=== PATIENT | female | born 1980 | race Caucasian/White ===

== ENCOUNTER → 2016-05-05 | Outpatient (CLI) | payer BC ==
--- NOTE | 2016-05-05 10:07 | NM ---
EXAMINATION TYPE: NM hepatobiliary w EF DATE OF EXAM: 05/05/2016 8:38 AM COMPARISON: NONE HISTORY: Epigastric pain per order. Diminished appetite for 2 months with nausea per patient. TECHNIQUE: After the intravenous administration of 5.5 mCi Tc 99m Mebrofenin hepatobiliary scintigrap hy is performed. Immediate images post injection. FINDINGS: There is satisfactory initial accumulation of tracer by the liver. The gallbladder is visualized wit hin 15 minutes. The small bowel activity is noted within 30 minutes. At one hour 8 ounces of oral e nsure plus is given to mimic CCK and gallbladder ejection fraction is calculated at 78 %, in the norm al range. Therefore there is no scintigraphic evidence of cystic or common bile duct obstruction to suggest acute cholecystitis or gallbladder dyskinesia. IMPRESSION: Exam is within normal limits.
== END | disposition home or self-care (01) ==
LOC: RADNMMAIN 06:27
PROVIDERS: ATTEND Family Medicine
DX: K82.8 Other specified diseases of gallbladder (principal); R10.13 Epigastric pain
CPT/HCPCS: 78226; A9537

== ENCOUNTER 2016-10-29 09:47 | Day surgery (SDC) | payer BC ==
[2016-10-26 12:41] VITALS: BMI 25.0
[~2016-10-29 09:47] MED LIST: LACTATED RINGERS 1,000 ML IV SCH; LIDOCAINE 1% 20 ML VIAL (10MG/ML) FOR IV START INTRADERMA PRN
[2016-10-29 11:32] VITALS: TEMP 98.5
--- NOTE | 2016-10-29 12:09 | P.PCN ---
Date of Procedure: 10/29/16 Preoperative Diagnosis: Postoperative Diagnosis: Procedure(s) Performed: BRIEF HISTORY: Patient is a 36-year-old, pleasant, white female, scheduled for an upper endoscopy as a part of evaluation of epigastric pain for the last 2 years duration. She has chronic heartburn and has been on Prilosec 20 mg daily and doing well. She has these episodes of epigastric pain once or twice a week the last couple of hours and then subsided. Has some nausea but no emesis.. PROCEDURE PERFORMED: Esophagogastroduodenoscopy with biopsy. PREOPERATIVE DIAGNOSIS: GERD/epigastric pain. IV sedation per anesthesia. PROCEDURE: After informed consent was obtained, the patient was brought into the endoscopy unit. IV sedation was administered by Anesthesia under continuous monitoring. Initially the Olympus GIF-140 video endoscope was inserted into the mouth. Esophagus intubated without any difficulty. It was gradually advanced into the stomach and duodenum and carefully examined. The bulb and the second part of the duodenum appeared normal. The scope at this time was withdrawn to the stomach, adequately insufflated with air, and upon careful examination, mucosa of the antrum, body, cardia and the fundus appeared normal. The scope was then withdrawn into the esophagus. The GE junction was located at 39 cm from the incisors. The esophagus appeared normal. There were no erosions or ulcerations seen and the patient tolerated the procedure well. IMPRESSION: 1. Mild antral gastritis. 2. No evidence of esophagitis or peptic ulcer disease. RECOMMENDATIONS: The findings of this examination were discussed with the patient as well as a family. She was advised to follow with the biopsy results. She will continue with Prilosec 20 mg daily and follow antireflux measures. Implants: Indications for Procedure: Operative Findings: Description of Procedure:
[2016-10-29 12:24] VITALS: RESP 16
[2016-10-29 12:44] VITALS: BP 120/40; PULSE 66
== END 2016-10-29 12:54 | disposition home or self-care (01) ==
LOC: ORWHC2ENDO 09:47
PROVIDERS: ATTEND Internal Medicine Gastroenterology
DX: K29.50 Unspecified chronic gastritis without bleeding (principal); Z79.899 Other long term (current) drug therapy
CPT/HCPCS: 43239; 88305; 88342

== ENCOUNTER 2017-07-21 18:39 | Emergency (ER) | payer BC ==
[2017-07-21] MEDS ORDERED: RX INFO: IV CONTRAST WAS GIVEN 1 EACH MISC MISCELLANE PRN (19:57)
[2017-07-21] MEDS ORDERED: KETOROLAC 30 MG/ML 1 ML VIAL IVP STA (19:57)
[2017-07-21] MEDS ORDERED: SODIUM CHLORIDE 0.9% 500 ML IV STA (19:57)
--- NOTE | 2017-07-21 20:02 | ED ---
Female Urogenital HPI - General Chief complaint: Urogenital Stated complaint: RT SIDE GROIN PAIN X 2 WEEKS Time Seen by Provider: 07/21/17 19:39 Source: patient Mode of arrival: ambulatory Limitations: no limitations - History of Present Illness Initial comments: 37-year-old female patient presents to the emergency department today for evaluation of right groin pain. Patient states that she has had this pain on and off since February however over the last 2 weeks the pain has become more constant and severe. Patient states that she had seen her hydramatic mechanic initially for this pain, had an ultrasound which showed a 5 cm ovarian cyst on the right side. He states that they did do a laparoscopic surgery on 05/16/17 and found multiple adhesions, states that they cleared the adhesions the left the cyst in place. Once the pain worsened patient followed up with her hydramatic mechanic, they repeated the ultrasound yesterday and showed that the cyst is now resolved and found no cause for her pain. Patient did call her primary care physician but cannot get in for a couple of weeks. They recommended she come in here to be evaluated. Patient describes the pain as a sharp stabbing pain. States it is constant. States that it worsens with movement. She denies any radiation of the pain to her back. She denies any nausea, vomiting, fever, chills, constipation, diarrhea, hematochezia, melena, vaginal bleeding, or vaginal discharge. Patient does have a history of hysterectomy and C- section. Patient denies any recent rash, shortness breath, chest pain, numbness , tingling, dizziness, weakness, hematuria, dysuria, urinary urgency, urinary frequency, headache, visual changes, or any other complaints. - Related Data Home Medications Medication Instructions Recorded Confirmed clonazePAM [KlonoPIN] 1 mg PO HS PRN 07/21/17 07/21/17 Allergies Allergy/AdvReac Type Severity Reaction Status Date / Time No Known Allergies Allergy Verified 07/21/17 19:55 Review of Systems ROS Statement: Those systems with pertinent positive or pertinent negative responses have been documented in the HPI. ROS Other: All systems not noted in ROS Statement are negative. Past Medical History Past Medical History: No Reported History History of Any Multi-Drug Resistant Organisms: None Reported Past Surgical History: Section, Hysterectomy Past Anesthesia/Blood Transfusion Reactions: No Reported Reaction Past Psychological History: No Psychological Hx Reported Smoking Status: Never smoker Past Alcohol Use History: Rare Past Drug Use History: None Reported - Past Family History Mother Family Medical History: No Reported History General Exam Limitations: no limitations General appearance: alert, in no apparent distress, other (This is a well- developed, well-nourished adult female patient in no acute distress. Vital signs upon presentation are temperature 98.2F, pulse 80, respirations 20, blood pressure 131/78, pulse ox 98% on room air.) Eye exam: Present: normal appearance, PERRL, EOMI. Absent: scleral icterus, conjunctival injection, periorbital swelling ENT exam: Present: normal exam, normal oropharynx, mucous membranes moist Respiratory exam: Present: normal lung sounds bilaterally. Absent: respiratory distress, wheezes, rales, rhonchi, stridor Cardiovascular Exam: Present: regular rate, normal rhythm, normal heart sounds. Absent: systolic murmur, diastolic murmur, rubs, gallop, clicks GI/Abdominal exam: Present: soft, tenderness (Right lower quadrant tenderness), normal bowel sounds. Absent: distended, guarding, rebound, rigid Back exam: Present: normal inspection. Absent: CVA tenderness (R), CVA tenderness (L) Neurological exam: Present: alert, oriented X3, CN II-XII intact Psychiatric exam: Present: normal affect, normal mood Skin exam: Present: warm, dry, intact, normal color. Absent: rash Course Vital Signs 07/21/17 07/21/17 18:44 21:18 Temperature 98.2 F Pulse Rate 80 79 Respiratory 20 17 Rate Blood Pressure 131/78 110/69 O2 Sat by Pulse 98 100 Oximetry Medical Decision Making - Medical Decision Making 37-year-old female patient presented to the emergency department today for evaluation of right lower quadrant abdominal pain. Physical examination did reveal some right lower abdominal tenderness. Labs reviewed and were unremarkable. Urine was clear for any infection. Patient did have ultrasound by her physician yesterday which was clear for any ovarian cysts. CT of the abdomen and pelvis with contrast was obtained today and did show a large left- sided ovarian cyst but this is not a cover her symptoms. Appendix looked normal. Patient is afebrile, vital signs are stable. Did discuss findings with the patient. Patient does have a history of abdominal adhesions, I informed her that this could be part a cause for her pain. She is instructed to follow-up with the general surgeon for further evaluation. Return parameters discussed in detail. She verbalizes understanding and agrees with this plan. - Lab Data Result diagrams: 07/21/17 20:15 07/21/17 20:15 Lab Results 07/21/17 07/21/17 07/21/17 Range/Units 20:09 20:15 20:15 WBC 6.7 (3.8-10.6) k/uL RBC 4.55 (3.80-5.40) m/uL Hgb 13.3 (11.4-16.0) gm/dL Hct 39.2 (34.0-46.0) % MCV 86.2 (80.0-100.0) fL MCH 29.1 (25.0-35.0) pg MCHC 33.8 (31.0-37.0) g/dL RDW 12.5 (11.5-15.5) % Plt Count 298 (150-450) k/uL Neutrophils % 58 % Lymphocytes % 33 % Monocytes % 5 % Eosinophils % 2 % Basophils % 0 % Neutrophils # 3.9 (1.3-7.7) k/uL Lymphocytes # 2.2 (1.0-4.8) k/uL Monocytes # 0.3 (0-1.0) k/uL Eosinophils # 0.2 (0-0.7) k/uL Basophils # 0.0 (0-0.2) k/uL Sodium 143 (137-145) mmol/L Potassium 3.7 (3.5-5.1) mmol/L Chloride 109 H (98-107) mmol/L Carbon Dioxide 22 (22-30) mmol/L Anion Gap 12 mmol/L BUN 19 H (7-17) mg/dL Creatinine 0.70 (0.52-1.04) mg/dL Est GFR (CKD-EPI)AfAm >90 (>60 ml/min/1.73 sqM) Est GFR (CKD-EPI)NonAf >90 (>60 ml/min/1.73 sqM) Glucose 88 (74-99) mg/dL Plasma Lactic Acid Michael (0.7-2.0) mmol/L Calcium 9.1 (8.4-10.2) mg/dL Total Bilirubin 0.4 (0.2-1.3) mg/dL AST 20 (14-36) U/L ALT 25 (9-52) U/L Alkaline Phosphatase 39 (38-126) U/L Total Protein 6.3 (6.3-8.2) g/dL Albumin 3.6 (3.5-5.0) g/dL Amylase 51 (30-110) U/L Lipase 71 (23-300) U/L Urine Color Yellow Urine Appearance Clear (Clear) Urine pH 5.5 (5.0-8.0) Ur Specific [place] 1.025 (1.001-1.035) Urine Protein Negative (Negative) Urine Glucose (UA) Negative (Negative) Urine Ketones 1+ H (Negative) Urine Blood Negative (Negative) Urine Nitrite Negative (Negative) Urine Bilirubin Negative (Negative) Urine Urobilinogen <2.0 (<2.0) mg/dL Ur Leukocyte Esterase Negative (Negative) 07/21/17 Range/Units 20:15 WBC (3.8-10.6) k/uL RBC (3.80-5.40) m/uL Hgb (11.4-16.0) gm/dL Hct (34.0-46.0) % MCV (80.0-100.0) fL MCH (25.0-35.0) pg MCHC (31.0-37.0) g/dL RDW (11.5-15.5) % Plt Count (150-450) k/uL Neutrophils % % Lymphocytes % % Monocytes % % Eosinophils % % Basophils % % Neutrophils # (1.3-7.7) k/uL Lymphocytes # (1.0-4.8) k/uL Monocytes # (0-1.0) k/uL Eosinophils # (0-0.7) k/uL Basophils # (0-0.2) k/uL Sodium (137-145) mmol/L Potassium (3.5-5.1) mmol/L Chloride (98-107) mmol/L Carbon Dioxide (22-30) mmol/L Anion Gap mmol/L BUN (7-17) mg/dL Creatinine (0.52-1.04) mg/dL Est GFR (CKD-EPI)AfAm (>60 ml/min/1.73 sqM) Est GFR (CKD-EPI)NonAf (>60 ml/min/1.73 sqM) Glucose (74-99) mg/dL Plasma Lactic Acid Michael 0.7 (0.7-2.0) mmol/L Calcium (8.4-10.2) mg/dL Total Bilirubin (0.2-1.3) mg/dL AST (14-36) U/L ALT (9-52) U/L Alkaline Phosphatase (38-126) U/L Total Protein (6.3-8.2) g/dL Albumin (3.5-5.0) g/dL Amylase (30-110) U/L Lipase (23-300) U/L Urine Color Urine Appearance (Clear) Urine pH (5.0-8.0) Ur Specific [place] (1.001-1.035) Urine Protein (Negative) Urine Glucose (UA) (Negative) Urine Ketones (Negative) Urine Blood (Negative) Urine Nitrite (Negative) Urine Bilirubin (Negative) Urine Urobilinogen (<2.0) mg/dL Ur Leukocyte Esterase (Negative) - Radiology Data Radiology results: report reviewed, image reviewed CT of the abdomen and pelvis with contrast was obtained. Report was reviewed in its entirety. Impression by Dr. Barber shows large left ovarian cyst. Trace amount of free fluid in the cul-de-sac. Normal appendix. No evidence of renal mass or obstruction. Disposition Clinical Impression: Pelvic pain, Ovarian cyst, left Disposition: HOME SELF-CARE Condition: Good Instructions: Ovarian Cyst (ED), Abdominal Pain (ED) Additional Instructions: Follow-up with [facility] for further evaluation. Follow-up with general surgeon for further evaluation. Return here immediately for any new, worsening, or concerning symptoms. Is patient prescribed a controlled substance at d/c from ED?: No Referrals: Tyrese Mcdermott MD [Primary Care Provider] - 1-2 days Radha Agrawal MD [STAFF PHYSICIAN] - 1-2 days Time of Disposition: 22:05
[2017-07-21 20:29] LABS: Basophils % (A) 0 %; Eosinophils # (A) 0.2 k/uL (0-0.7); Eosinophils % (A) 2 %; HCT 39.2 % (34.0-46.0); HGB 13.3 gm/dL (11.4-16.0); Lymphocytes # (A) 2.2 k/uL (1.0-4.8); Lymphocytes % (A) 33 %; MCH 29.1 pg (25.0-35.0); MCHC 33.8 g/dL (31.0-37.0); MCV 86.2 fL (80.0-100.0); Mean Platelet Volume 6.7; Monocytes # (A) 0.3 k/uL (0-1.0); Monocytes % (A) 5 %; Neutrophils # (A) 3.9 k/uL (1.3-7.7); Neutrophils % (A) 58 %; Platelet Count 298 k/uL (150-450); RBC 4.55 m/uL (3.80-5.40); RDW 12.5 % (11.5-15.5); WBC 6.7 k/uL (3.8-10.6)
[2017-07-21 20:30] LABS: Appearance,Urine Clear (Clear); Bilirubin,Urine Negative (Negative); Blood,Urine Negative (Negative); Color,Urine Yellow; Glucose,Urine (UA) Negative (Negative); Ketones,Urine 1+ (Negative); Leukocyte Esterase,Urine Negative (Negative); Nitrite,Urine Negative (Negative); PH, Urine 5.5 (5.0-8.0); Protein,Urine Negative (Negative); Specific Gravity,Urine 1.025 (1.001-1.035); Urobilinogen,Urine <2.0 mg/dL (<2.0)
[2017-07-21 20:40] LABS: ALT 25 U/L (9-52); AST 20 U/L (14-36); Albumin 3.6 g/dL (3.5-5.0); Alkaline Phosphatase 39 U/L (38-126); Amylase 51 U/L (30-110); Anion Gap 12 mmol/L; Blood Urea Nitrogen 19 mg/dL (7-17); Calcium 9.1 mg/dL (8.4-10.2); Carbon Dioxide 22 mmol/L (22-30); Chloride 109 mmol/L (98-107); Glucose 88 mg/dL (74-99); Lipase 71 U/L (23-300); Potassium 3.7 mmol/L (3.5-5.1); Sodium 143 mmol/L (137-145); Total Bilirubin 0.4 mg/dL (0.2-1.3); Total Protein 6.3 g/dL (6.3-8.2)
--- NOTE | 2017-07-21 21:46 | CT ---
EXAMINATION TYPE: CT abdomen pelvis w con DATE OF EXAM: 07/21/2017 COMPARISON: NONE HISTORY: RLQ pain worsening x2 weeks CT DLP: 555.7 mGycm Automated exposure control for dose reduction was used. TECHNIQUE: Helical acquisition of images was performed from the lung bases through the pelvis. CONTRAST: Performed without Oral Contrast and with IV Contrast, patient injected with 100 mL of Isovue 300. FINDINGS: Lung bases are clear. There is no pleural effusion. Heart size is normal. Liver spleen pancreas gallbladder appear normal. Bile ducts are not dilated. There is no adrenal mass. Kidneys show satisfactory contrast opacification. There is no hydronephrosi s. There is no retroperitoneal adenopathy. Ureters are not dilated. There is no ascites. There is a tiny amount of free fluid in the cul-de-sac. There is a 4 cm cyst on the left ovary. Bladder distends smoothly. Uterus is retroverted. Appendix appears normal. I see no i ntestinal wall thickening. There are no dilated loops. The bony structures appear intact. IMPRESSION: THERE IS A LARGE LEFT OVARIAN CYST. TRACE AMOUNT OF FREE FLUID IN THE CUL-DE-SAC. NORMAL APPENDIX. NO EVIDENCE OF RENAL MASS OR OBSTRUCTION.
[2017-07-21 22:29] VITALS: BP 109/71; PULSE 83; RESP 18; TEMP 98.1
== END 2017-07-21 22:28 | disposition home or self-care (01) ==
LOC: EC 18:39
DX: N83.202 Unspecified ovarian cyst, left side (principal); Z90.710 Acquired absence of both cervix and uterus; Z87.19 Personal history of other diseases of the digestive system; Z98.890 Other specified postprocedural states
CPT/HCPCS: 99284; 96374; 96361; 36415; 80053; 82150; 83605; 83690; 85025; 81003; 74177; J1885; Q9967